=== PATIENT | male | born 1935 | race Caucasian/White ===

== ENCOUNTER 2018-08-18 08:12 | Inpatient (IN) | payer MEDICARE, OTHER ==
[2018-08-15 12:05] VITALS: Ht 167.6 cm; Wt 63.4 kg
[~2018-08-18] VITALS: Ht 167.6 cm; Wt 63.4 kg
[2018-08-18] VITALS (35 sets, daily range): BP systolic 113–145; BP diastolic 48–79; PULSE 64–87; RESP 13–38
--- NOTE | 2018-08-18 06:15 | HPN ---
Date/Time of Note Date/Time of Note DATE: 08/18/18 TIME: 06:15 Interval H&P Admission Note Pt. seen H&P reviewed: No system changes ORLIN AGUIRRE MD Aug 18, 2018 06:15
--- NOTE | 2018-08-18 06:19 | OPR ---
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 Failed left total shoulder replacement 2. Left rotator cuff tear, massive Operation/Procedure Performed 1. Revision of left total shoulder replacement to reverse total shoulder replacement 2. Injection of PRP Surgeon see signature line Polymer Scientist Neftali Orellana DO Anesthesia Type: general Estimated Blood Loss: 150 - 200 ml's Transfusion none Specimen None Grafts/Implants See body of op note Complications none Pt Condition Post Procedure: stable Disposition: PACU Procedure Description INNER TUBE CUTTER SURGEON: Neftali Orellana DO was asked to be present for this case at my request. Assistance was necessary as a result of the highly technical nature of this operation. When performing an open total shoulder replacement, it is critical to have a trained assistant women's soccer coach who is an expert in handling the extremity and assisting the surgeon in tasks such as manipulation of the arm, protection of the neurovascular structures and positioning the implants. This assistance cannot be performed by a compounding pharmacy technician, as it is considered an integral part of the procedure and the assistant women's soccer coach should be compensated for their time. PROCEDURE IN DETAIL: Following the administration of general anesthesia suppl emented with a peripheral nerve block for postoperative pain control, the patient was examined under anesthesia. Examination of the left shoulder revealed that the humeral head was sitting posteriorly dislocated. There was moderate to severe crepitus with motion. The left forearm was prepped and 60 cc of blood were drawn using a 60 cc syringe coated with anticoagulant. The blood was harvested from the patient and given to the branch service representative who prepared PRP concentrate. The patient was then placed in the beach chair position. Sterile prep and drape was then undertaken. An extended deltopectoral incision was then carried throu gh the interval exposing the conjoined tendon and retracting it medially. The humeral component was then noted to be in the subdeltoid plane the subdeltoid plane was then elevated. Severe synovitis was noted with the humeral head being superiorly and posteriorly displaced. The humeral component was then removed with osteotomes and mallet. The canal was intact distally. The tuberosities were slightly comminuted. The glenoid component was seen to be completely displaced and this was removed atraumatically. There was a central cavitary defect in the glenoid and this was prepared with bony putty in order to augment the area. The central canal of the glenoid was then entered and prepared for a Depuy baseplate with a 15 mm peg was then fashioned. The baseplate was then applied with four peripheral screws and solid fixation. A 38 mm glenosphere was then applied, with solid fixation. The humerus was then reamed and prepared for a 8 mm humeral longstem component with a standard metaphyseal component. The joint was irrigated and the medullary canal infiltrated with the PRP solution that was prepared previously. The actual components were implanted with solid fixation with a 3 mm liner. The arm was taken through full range of motion with no evident instability. The joint was then thoroughly irrigated, the deep tissues were approximated using #1 suture followed by closure of the deep layer using 2-0 Monocryl. The skin was closed using 4-0 Monocryl suture, and a Prenio dressing. An Ultrasling was then applied. The patient was awakened and transported to the recovery room in stable condition. Estimated blood loss for this procedure was 200 cc. Radiographs will be obtained in the recovery room. ORLIN AGUIRRE MD Aug 18, 2018 06:19
[~2018-08-18 08:12] MED LIST: ASPI-481 PO; ATOR10TA23 PO; BUPIVACAINE 0.5% (SDV) 30 ML, morphine SULFATE (PF) 8 MG, EPINEPHrine 0.3 MG, KETOROLAC... IRR SCH; CEFAZOLIN 2 GM/50 ML (PMX) 50 ML IVPB ONE; CLON-412 PO; DESFLURANE 15 MIN ONE; DEXAMETHASONE 1 MG TAB PO ONE; DOXY100C47 PO; GABAPENTIN 300 MG CAP PO ONE; RANI75TA13 PO; TAMS-14 PO; TRANEXAMIC ACID 1,000 MG in DEXTROSE 5% 100 ML IVPB ONE; ZOLP10TA PO
[2018-08-18] MEDS ORDERED: DOXY100T20 PO (08:46)
[2018-08-18] MEDS ORDERED: CLON1TAB13 PO (08:47)
[2018-08-18] MEDS ORDERED: ATOR-2 PO (08:47)
[2018-08-18] MEDS ORDERED: ASPI81TA52 PO (08:49)
[2018-08-18] MEDS ORDERED: ZOLP10TA PO (08:49)
[2018-08-18] MEDS ORDERED: ERGO2000 PO (08:49)
[2018-08-18] MEDS ORDERED: ASCO500C7 PO (08:50)
[2018-08-18] MEDS ORDERED: RANI150T35 PO (08:50)
[2018-08-18] MEDS ORDERED: BUPIVACAINE 0.5%/EPI (SDV) 30 ML INJ ONE (09:31)
[2018-08-18] MEDS ORDERED: POLYMYXIN/BACITRACIN 1L IRRIG ONE (09:33)
[2018-08-18] MEDS ORDERED: THROMBIN 5000 UNIT VIAL ONE (09:33)
[2018-08-18] MEDS ORDERED: CA CHLORIDE 10% 10 ML SYRINGE ONE (09:33)
--- NOTE | 2018-08-18 09:48 | PREAC ---
Date/Time of Note Date/Time of Note DATE: 08/18/18 TIME: 09:44 Anesthesia Eval and Record Evaluation Time Pre-Procedure Interview DATE: 08/18/18 TIME: 09:44 Age 83 Sex male NPO: 8 hrs Preoperative diagnosis left shoulder arthritis, rotator tear Planned procedure open reversed left total shoulder replacement Past Medical History Past Medical History: Includes Cardio: Dyslipidemia, CAD Musculoskeletal: Osteoarthritis Renal: Other (hx of bladder ca removed) GI: Hiatal hernia Surgery & Anesthesia Issues No known issue Meds Anticoagulation: No Beta Clemente within 24 hr: No Reason Beta Clemente not given: Pt. not on B-Clemente Reported Medications Ascorbic Acid* (Vitamin C*) 500 Mg Capsule.sa, 500 MG PO DAILY, CAP 08/18/18 Ranitidine Hcl* (Zantac*) 150 Mg Tablet, 150 MG PO HS, #30 TAB 08/18/18 Zolpidem Tartrate* (Ambien*) 10 Mg Tablet, 10 MG PO QHS PRN for INSOMNIA, TAB 08/18/18 Aspirin (Low Dose Aspirin) 81 Mg Tablet.dr, 81 MG PO DAILY, #30 TAB 08/18/18 Ergocalciferol (Vitamin D2) (VITAMIN D2) 2,000 Unit Tablet, 2000 UNIT PO DAILY, TAB 08/18/18 Atorvastatin* (Atorvastatin*) 80 Mg Tablet, 80 MG PO QHS, #30 TAB 08/18/18 Clonazepam* (Clonazepam*) 1 Mg Tablet, 1 MG PO QAM PRN for ANXIETY, TAB 08/18/18 Doxycycline Hyclate* (Doxycycline Hyclate*) 100 Mg Tablet.dr, 100 MG PO BID, TAB 08/18/18 Discontinued Reported Medications Doxycycline Hyclate (Doxycycline Hyclate) 100 Mg Capsule.dr, 100 MG PO BID for 5 Days 09/10/11 Ranitidine Hcl* (Zantac*) 75 Mg Tablet, 150 MG PO BID 09/10/11 Atorvastatin (Lipitor) 10 Mg Tablet, 10 MG PO DAILY 09/10/11 Clonazepam* (Klonopin*) 1 Mg Tablet, 1 MG PO HS 09/10/11 Tamsulosin Hcl* (Flomax*) 0.4 Mg Cap.sr.24h, 0.4 MG PO HS 09/10/11 Aspirin (Baby Aspirin) 81 Mg Tab.chew, 81 MG PO DAILY 09/10/11 Zolpidem Tartrate* (Ambien*) 10 Mg Tablet, 10 MG PO PRN 09/10/11 Current Medications Bupivacaine HCl/ Morphine Sulfate/ Epinephrine/ Ketorolac Tromethamine/ Clonidine/Sodium Chloride/ Vancomycin HCl INTRA-OP IRR ; Start 08/18/18 at 06:00; Stop 08/18/18 at 13:00 Meds reviewed: Yes Allergies Coded Allergies: No Known Drug Allergies (Verified Allergy, Unknown, 08/18/18) Allergies Reviewed: Yes Labs/Studies Labs Reviewed: Reviewed by anesthesiologist test: N/A Studies: ECG, CXR Pre-procedure Exam Last vitals Vital Signs Date Temp Pulse Resp B/P (MAP) Pulse Ox O2 O2 Flow FiO2 Time Delivery Rate 08/18/18 98.1 70 16 145/65 99 Room Air 08:20 (91) Airway: Adequate mouth opening, Adequate thyromental dist Mallampati: Mallampati I Teeth: Normal Lung: Normal Heart: Normal ASA Physical Status ASA physical status: 3 Emergency: None Planned Anesthetic General/MAC: ETT Nerve block: Brachial plexus (left) Planned Pain Management Single shot nerve block, Parenteral pain med Pre-operative Attestations Prior to commencing anesthesia and surgery, the patient was re-evaluated, there was verification of: *The patient's identity *The results of appropriate recent lab work and preoperative vital signs *The above evaluation not changing prior to induction *Anesthetic plan, risk benefits, alternative and complications discussed with patient/family; questions answered; patient/family understands, accepts and wishes to proceed. CLAY MCCLAIN Aug 18, 2018 09:47
[2018-08-18] MEDS ORDERED: MIDAZOLAM 1 MG/ML 2 ML INJ ONE (09:50)
[2018-08-18] MEDS ORDERED: ROPIVACAINE 0.5 % 30 ML VIAL ONE (09:51)
[2018-08-18] MEDS ORDERED: DEXAMETHASONE 4 MG/ML 5 ML INJ ONE (12:15)
[2018-08-18] MEDS ORDERED: ONDANSETRON 4 MG INJ ONE (12:15)
[2018-08-18] MEDS ORDERED: GLYCOPYRROLATE 0.4 MG INJ ONE (13:27)
[2018-08-18] MEDS ORDERED: CEFAZOLIN 1 GM INJ ONE (13:27)
[2018-08-18] MEDS ORDERED: NEOSTIGMINE 3 MG/3 ML SYRINGE ONE (13:27)
--- NOTE | 2018-08-18 13:27 | PDOCDIS ---
Discharge Instructions DIAGNOSIS Discharge Diagnosis Failed total shoulder CONDITION [id number] Patient Condition: [id number] Good HOME CARE INSTRUCTIONS: [id number] Diet Instructions: [id number] Regular ACTIVITY: [id number] Activity Restrictions: [id number] Slowly Increase Activity Keep Limb Elevated [id number] Bathing Restrictions: [id number] Shower FOLLOW UP/APPOINTMENTS Follow-up Plan 2 weeks SCHOOL/WORK RELEASE May return to School/Work with: With Restrictions School/Work Release Comment: 5 pound tabletop usage for 6 weeks ORLIN AGUIRRE MD Aug 18, 2018 13:27
[2018-08-18] MEDS ORDERED: clonAZEPAM 0.5 MG TAB PO PRN (13:30)
[2018-08-18] MEDS ORDERED: NACL 0.9% 3 ML SYG IV SCH (13:30)
[2018-08-18] MEDS ORDERED: ONDANSETRON 4 MG INJ IV PRN ×2 (13:30→14:00)
[2018-08-18] MEDS ORDERED: TRANEXAMIC ACID 1,000 MG in SOD CHLORIDE 0.9% 100 ML IVPB SCH (13:30)
[2018-08-18] MEDS ORDERED: MAGNESIUM HYDROXIDE 30ML CUP PO PRN (13:30)
[2018-08-18] MEDS ORDERED: LOPERAMIDE 2 MG CAP PO PRN (13:30)
[2018-08-18] MEDS ORDERED: DIPHENHYDRAMINE 50 MG INJ IV PRN ×2 (13:30→14:00)
[2018-08-18] MEDS ORDERED: HYDROmorphONE 1 MG/ML SYG IV PRN (13:30)
[2018-08-18] MEDS ORDERED: oxyCODONE 5 MG TAB PO PRN ×2 (13:30)
[2018-08-18] MEDS ORDERED: KETOROLAC 15 MG INJ IV PRN (13:30)
[2018-08-18] MEDS ORDERED: ZOLPIDEM 5 MG TAB PO PRN (13:30)
--- NOTE | 2018-08-18 13:34 | PAC ---
Date/Time of Note Date/Time of Note DATE: 08/18/18 TIME: 13:34 Post-Anesthesia Notes Post-Anesthesia Note Last documented vital signs Vital Signs Date Temp Pulse Resp B/P (MAP) Pulse Ox O2 O2 Flow FiO2 Time Delivery Rate 08/18/18 98.1 70 16 145/65 99 Room Air 13:34 (91) Activity: WNL Respiratory function: WNL Cardiovascular function: WNL Mental status: Baseline Pain reasonably controlled: Yes Hydration appropriate: Yes Nausea/Vomiting absent: Yes CLAY MCCLAIN Aug 18, 2018 13:34
[2018-08-18] MEDS: CEFAZOLIN 1 GM/50 ML (PMX) 50 ML IVPB SCH ×2 (13:51→21:28)
[2018-08-18] MEDS ORDERED: OXYCODONE/ACETAMINOPHEN (5/325) TAB PO PRN ×2 (14:00)
[2018-08-18] MEDS ORDERED: FENTAnyl 50 MCG/ML VIAL IV PRN ×3 (14:00)
[2018-08-18] MEDS ORDERED: KETOROLAC 30 MG INJ IV PRN (14:00)
[2018-08-18] MEDS ORDERED: hydrALAzine 20 MG INJ IV PRN (14:00)
[2018-08-18] MEDS ORDERED: HYDROmorphONE 1 MG/5 ML IV SYRINGE IV PRN ×3 (14:00)
[2018-08-18] MEDS ORDERED: MEPERIDINE 25 MG INJ IV PRN (14:00)
[2018-08-18] MEDS ORDERED: METOCLOPRAMIDE 10 MG INJ IV PRN (14:00)
[2018-08-18] MEDS ORDERED: ALBUTEROL 0.083% (NEB) 2.5 MG/3 ML AMP HHN PRN (14:00)
[2018-08-18] MEDS ORDERED: EPHEDrine SULFATE 50 MG/5 ML SYG IV PRN (14:00)
[2018-08-18] MEDS ORDERED: MIDAZOLAM 1 MG/ML 2 ML INJ IV PRN (14:00)
[2018-08-18] MEDS ORDERED: LABETALOL HCL 20MG INJ IV PRN (14:00)
[2018-08-18] MEDS: DEXAMETHASONE 2 MG TAB PO SCH ×2 (17:57→23:24)
[2018-08-18] MEDS: ACETAMINOPHEN 500 MG TAB PO SCH ×2 (17:57→23:24)
[2018-08-18] MEDS: SENNA/DOCUSATE NA (8.6MG/50MG) TAB PO SCH (20:26)
[2018-08-18] MEDS ORDERED: ATORVASTATIN 80 MG TAB PO SCH (21:00)
[2018-08-18] MEDS ORDERED: GABAPENTIN 300 MG CAP PO SCH (21:00)
[2018-08-18] MEDS ORDERED: RANITIDINE 150 MG TAB PO SCH (21:00)
[2018-08-19] MEDS: CEFAZOLIN 1 GM/50 ML (PMX) 50 ML IVPB SCH (04:50)
[2018-08-19] MEDS: ACETAMINOPHEN 500 MG TAB PO SCH ×2 (05:43→11:57)
[2018-08-19] MEDS: DEXAMETHASONE 2 MG TAB PO SCH ×2 (05:43→11:57)
--- NOTE | 2018-08-19 06:08 | PN ---
Date/Time of Note Date/Time of Note DATE: 08/19/18 TIME: 06:07 Subjective Awake and alert with minimal pain this morning Objective Vitals Vital Signs Date Temp Pulse Resp B/P (MAP) Pulse Ox O2 O2 Flow FiO2 Time Delivery Rate 08/18/18 97.7 72 18 113/52 97 23:29 (72) 08/18/18 Room Air 17:30 Intake and Output 08/18/18 08/18/18 08/19/18 1515:00 23:00 07:00 IntakeIntake Total 1110 ml 290 ml 480 ml OutputOutput Total 20 ml 600 ml BalanceBalance 1090 ml -310 ml 480 ml Wound clean and dry. Neurologically intact. No signs of DVT. Medications Medications Current Medications Atorvastatin Calcium (Lipitor) 80 mg QHS PO Last administered on 08/18/18 20:26; Admin Dose 80 MG; Start 08/18/18 at 21:00 Clonazepam (Klonopin) 1 mg QAM PRN PO ANXIETY; Start 08/18/18 at 13:30 Ranitidine HCl (Zantac) 150 mg HS PO Last administered on 08/18/18 20:26; Admin Dose 150 MG; Start 08/18/18 at 21:00 Senna/Docusate Sodium (Senokot-S) 1 tab BID PO Last administered on 08/18/18 20:26; Admin Dose 1 TAB; Start 08/18/18 at 21:00 Simethicone (Mylicon) 80 mg TID PRN PO DISTENSION/GAS/BLOATING; Start 08/18/18 at 13:30 Magnesium Hydroxide (Milk Of Mag) 30 ml BID PRN PO CONSTIPATION; Start 08/18/18 at 13:30 Loperamide HCl (Imodium Cap) 2 mg Q6H PRN PO DIARRHEA; Start 08/18/18 at 13:30 Dexamethasone (Decadron) 2 mg Q6 PO Last administered on 08/19/18at 05:43; Admin Dose 2 MG; Start 08/18/18 at 18:00; Stop 08/19/18 at 12:01 Gabapentin (Neurontin) 300 mg HS PO Last administered on 08/18/18 20:26; Admin Dose 300 MG; Start 08/18/18 at 21:00 Acetaminophen (Tylenol Tab) 500 mg Q6 PO Last administered on 1/11/19at 05:43; Admin Dose 500 MG; Start 08/18/18 at 18:00 Oxycodone HCl (Roxicodone) 15 mg Q4H PRN PO PAIN; Start 08/18/18 at 13:30 Oxycodone HCl (Roxicodone) 10 mg Q4H PRN PO PAIN; Start 08/18/18 at 13:30 Oxycodone HCl (Roxicodone) 5 mg Q4H PRN PO PAIN; Start 08/18/18 at 13:30 Hydromorphone HCl (Dilaudid) 1 mg Q4H PRN IV BREAKTHROUGH PAIN; Start 08/18/18 at 13:30 Ketorolac Tromethamine (Toradol) 15 mg Q6H PRN IV PAIN; Start 08/18/18 at 13:30 Ondansetron HCl (Zofran Inj) 4 mg Q6H PRN IV NAUSEA AND/OR VOMITING; Start 08/18/18 at 13:30 Diphenhydramine HCl (Benadryl) 25 mg Q6H PRN IV PRURITUS; Start 08/18/18 at 13:30 Zolpidem Tartrate (Ambien) 10 mg HS PRN PO INSOMNIA Last administered on 08/18/18at 23:24; Admin Dose 10 MG; Start 08/18/18 at 13:30 IV Flush (NS 3 ml) 3 ml per protocol IV ; Start 08/18/18 at 13:30 VTE Prophylaxis Risk score (from Nsg)>0 risk: 11 SCD applied (from Nsg): Yes Lines/Catheters IV Catheter Type: Saline Lock Damon in Place: No Assessment/Plan Assessment/Plan Assessment: Status post reverse total shoulder Plan: Be discharged later this morning follow-up in 2 weeks in the office no PT for now ORLIN AGUIRRE MD Aug 19, 2018 06:08
--- NOTE | 2018-08-19 06:09 | DS ---
Date/Time of Note Date/Time of Note DATE: 08/19/18 TIME: 06:08 Discharge Summary Admission/Discharge Info Admit Date/Time Aug 18, 2018 at 08:12 Discharge Date/Time 08/19/2018 Discharge Diagnosis Failed total shoulder Patient Condition: Good Hospital Course Admitted and underwent uncomplicated procedure. Postop day 1 doing well discharge home follow-up in 2 weeks Home Meds Reported Medications Ascorbic Acid* (Vitamin C*) 500 Mg Capsule.sa, 500 MG PO DAILY, CAP 08/18/18 Ranitidine Hcl* (Zantac*) 150 Mg Tablet, 150 MG PO HS, #30 TAB 08/18/18 Zolpidem Tartrate* (Ambien*) 10 Mg Tablet, 10 MG PO QHS PRN for INSOMNIA, TAB 08/18/18 Aspirin (Low Dose Aspirin) 81 Mg Tablet.dr, 81 MG PO DAILY, #30 TAB 08/18/18 Ergocalciferol (Vitamin D2) (VITAMIN D2) 2,000 Unit Tablet, 2000 UNIT PO DAILY, TAB 08/18/18 Atorvastatin* (Atorvastatin*) 80 Mg Tablet, 80 MG PO QHS, #30 TAB 08/18/18 Clonazepam* (Clonazepam*) 1 Mg Tablet, 1 MG PO QAM PRN for ANXIETY, TAB 08/18/18 Doxycycline Hyclate* (Doxycycline Hyclate*) 100 Mg Tablet.dr, 100 MG PO BID, TAB 08/18/18 Discontinued Reported Medications Doxycycline Hyclate (Doxycycline Hyclate) 100 Mg Capsule.dr, 100 MG PO BID for 5 Days 09/10/11 Ranitidine Hcl* (Zantac*) 75 Mg Tablet, 150 MG PO BID 09/10/11 Atorvastatin (Lipitor) 10 Mg Tablet, 10 MG PO DAILY 09/10/11 Clonazepam* (Klonopin*) 1 Mg Tablet, 1 MG PO HS 09/10/11 Tamsulosin Hcl* (Flomax*) 0.4 Mg Cap.sr.24h, 0.4 MG PO HS 09/10/11 Aspirin (Baby Aspirin) 81 Mg Tab.chew, 81 MG PO DAILY 09/10/11 Zolpidem Tartrate* (Ambien*) 10 Mg Tablet, 10 MG PO PRN 09/10/11 Follow-up Plan 2 weeks Primary Care Provider Not On Staff Doctor ORLIN AGUIRRE MD Aug 19, 2018 06:09
[2018-08-19 08:11] VITALS: BP 114/58; PULSE 59; RESP 18
[2018-08-19] MEDS: SENNA/DOCUSATE NA (8.6MG/50MG) TAB PO SCH (09:11)
[2018-08-19] MEDS: oxyCODONE 5 MG TAB PO PRN ×2 (11:15→11:40)
== END 2018-08-19 12:35 | disposition home or self-care (01) | DRG 483 ==
LOC: REC 08:12 → MS1 14:48
PROVIDERS: ADMIT Orthopaedic Surgery; ATTEND Orthopaedic Surgery
PROC: 0RPK0JZ Removal of Synthetic Substitute from Left Shoulder Joint, Open Approach (ICD-10-PCS; 2018-08-18)
PROC: 0RRK00Z Replacement of Left Shoulder Joint with Reverse Ball and Socket Synthetic Substitute, Open Approach (ICD-10-PCS; principal; 2018-08-18 10:30)
DX: T84.028A Dislocation of other internal joint prosthesis, initial encounter (principal); X50.9XXA Other and unspecified overexertion or strenuous movements or postures, initial encounter; Z96.612 Presence of left artificial shoulder joint
CPT/HCPCS: 71045; 73030; 86999; 88300; C1776; J0171; J0690; J0735; J1100; J1885; J2250; J2274; J2405; J2710; J2795; J3370